=== PATIENT | male | born 1965 | race Hispanic/Latino ===

== ENCOUNTER 2017-03-06 10:48 | Emergency (ER) | payer MEDICAID, OTHER ==
[~2017-03-06] VITALS: Ht 172.7 cm; Wt 79.5 kg
[~2017-03-06 10:48] MED LIST: HYDR-4003 PO
[2017-03-06 10:53] VITALS: BP 118/71; PULSE 77; RESP 16; O2SAT 98
--- NOTE | 2017-03-06 11:32 | ED.REPORT ---
HPI-Extremity Problem Lower Date of Service Mar 06, 2017 ED Provider: Aaron Del Toro PA-C The patient is a 51-year-old male presents with chief complaint of left lower leg pain. He complains of pain over the upper lateral lower leg has been worsening over the last 2 weeks. He reports that holding his leg still tends to help with the pain and motion aggravates it. He reports that it occasionally wakes him sleep. Denies night sweats. He cannot recall specific trauma, but states that "I jumped around a lot" at work. He works at a [employer]. Admits alcohol use prior to presentation "to deal with the pain." Reports a history of a ORIF for a left distal fibula fracture approximately 20 years ago. Denies fever, chills, malaise, numbness, weakness in the limb, inability to use the knee. Nursing Notes Stated Complaint: LEG PAIN Chief Complaint: Extremity Trauma Nursing Notes Reviewed: Yes Allergies: Coded Allergies: No Known Allergies (Unverified Allergy, 06/05/10) No Active Prescriptions or Reported Meds General Time Seen by MD: 11:10 Chief Complaint Knee injury left Past Medical History Past Medical History Hx of alcohol use Family History noncontributory Social History Drinks alcohol regularly Alcohol Use: >5 per day Drug Use: Denies drug use Other Social History: Good social support, , Local resident Ambulatory Status Independent Review of Systems Review of Systems Note: Negative unless stated otherwise in history of present illness Physical Exam General: Well appearing, well developed, well nourished, no acute distress. Left hip: Nontender, full range of motion. Left knee: Normal to inspection, no redness, swelling, heat. Full range of motion. Exquisite tenderness over the fibular head. Left leg: Nontender, diameter roughly equal to right. Left ankle/foot: Nontender, full range of motion. Scars on the lateral ankle consistent with ORIF. DP and PT pulses 2+. Sensation intact. Head: Atraumatic, normocephalic. Eyes: No scleral icterus or injection. No discharge. Vision grossly intact. ENT: Voice clear, hearing grossly intact. Respiratory: No respiratory distress, no increased work of breathing. Speaks in complete sentences. Skin: Warm and dry. Neurological: Grossly nonfocal. Psychological: alert and oriented. Speech appropriate, linear and logical. Behavior appropriate. Initial Vital Signs Vital Signs (First) Date Time Temp Pulse Resp B/P Pulse Ox O2 Delivery O2 Flow Rate FiO2 03/06/17 10:53 36.7 77 16 118/71 98 Room Air Initial VS: Vital signs normal Interpretation & Diagnostics X-Ray Interpretation Xray Interpretation: PROCEDURE: X-RAY LEFT TIBIA/FIBULA, TWO VIEWS ([id number]) INDICATIONS: fibular head tenderness FINDINGS: Bones: Deformity of proximal fibular shaft suggests non-acute fracture. No suspicious bony lesions. Soft tissues: No suspicious soft tissue calcifications or masses. IMPRESSION: Suspect non-acute fracture in the proximal fibular shaft. Interpretation / Wet Read by: Interpret - Radiologist, Interp - P Re-Eval/Medical Decision Med Decision/Clinical Course 51-year-old male presents with a chief complaint of left lower leg pain. Complains of worsening pain over his left fibular head. X-ray reveals a nonacute fracture. I am reassured regarding tumor or septic joint. Physical examination is otherwise reassuring with circulation, sensation and motion intact distal to the injury. Placed patient in walking boot and provided referral to orthopedics. Advise [id number] analgesia and emergency return precautions. Patient verbalizes understanding of and consent to the plan Discharge & Departure Impression: Primary Impression: Fracture, fibula, proximal Encounter type: initial encounter Fracture type: closed Fracture morphology : unspecified fracture morphology Laterality: left Qualified Code: S82.832A - Other fracture of upper and lower end of left fibula, initial encounter for closed fracture Disposition: Home Discharge Condition All VS Reviewed: Yes Condition: Stable Additional Instructions: Evaluation for left leg pain in the emergency department. X-rays reveal a non- acute fracture near the site of your pain. We will treat this by putting it in a cast boot to immobilize it. You may walk on this. The pain is best treated with 500 mg of naproxen (Aleve) every 12 hours, or 1000 mg of acetaminophen (Tylenol) every 8 hours. These drugs can be taken at the same time for more severe pain. I will give you a referral for orthopedic follow-up with Dr. Albino Beckwith. Please contact him this afternoon or tomorrow to arrange follow-up. Return to emergency department for new or worsening symptoms including increasing or severe pain. Referrals: Franki Beckwith DO EDSupervising Provider for APC: Jamil Tamayo DO copies to: Franki Beckwith Seth PA-C Mar 06, 2017 11:32
--- NOTE | 2017-03-06 12:37 | DRSVH ---
PROCEDURE: X-RAY LEFT TIBIA/FIBULA, TWO VIEWS ([id number]) INDICATIONS: fibular head tenderness TECHNIQUE: 2 views of the tibia and fibula were acquired. COMPARISON: None. FINDINGS: Bones: Deformity of proximal fibular shaft suggests non-acute fracture. No suspicious bony lesions. Soft tissues: No suspicious soft tissue calcifications or masses. IMPRESSION: Suspect non-acute fracture in the proximal fibular shaft. Dictated by: Feng Conway M.D. on 03/06/2017 at 12:34 Approved by: Feng Conway M.D. on 03/06/2017 at 12:35
== END 2017-03-06 13:22 | disposition home or self-care (01) ==
LOC: SED 10:48
DX: S82.832A Other fracture of upper and lower end of left fibula, initial encounter for closed fracture (principal); X50.9XXA Other and unspecified overexertion or strenuous movements or postures, initial encounter; Y92.59 Other trade areas as the place of occurrence of the external cause; Y93.89 Activity, other specified; Y99.0 Civilian activity done for income or pay; F10.20 Alcohol dependence, uncomplicated; Z87.828 Personal history of other (healed) physical injury and trauma
CPT/HCPCS: 73590; 96372; 99284; J1885

== ENCOUNTER 2017-08-18 09:11 | Emergency (ER) | payer OTHER ==
[~2017-08-18] VITALS: Ht 172.7 cm; Wt 80.9 kg
[2017-08-18 09:36] VITALS: BP 152/91; PULSE 73; RESP 16; O2SAT 98
== END 2017-08-18 11:10 | disposition left against medical advice (07) ==
LOC: SED 09:11
DX: M54.5 Low back pain (principal); Z53.29 Procedure and treatment not carried out because of patient's decision for other reasons